=== PATIENT | male | born 1955 | race African-American/Black ===

== ENCOUNTER 2016-12-14 11:35 | Day surgery (SDC) | payer OTHER ==
[2016-12-13 15:16] VITALS: BMI 28.2
[~2016-12-14 11:35] MED LIST: ACETAMINOPHEN 325 MG TABLET (FP) PO PRN; ACETYLCHOLINE 1:100 INTRA-OCUL 20 MG/2 ML KIT IO ONE
[2016-12-14] MEDS ORDERED: CYCLOPENTOLATE HCL 1% OPHTH SOLN 2 ML BOTTLE ONE (11:45)
[2016-12-14] MEDS ORDERED: TROPICAMIDE 1% OPHTH SOLN 15 ML BOTTLE ONE (11:45)
[2016-12-14] MEDS ORDERED: FLURBIPROFEN 0.03% OPHTH SOLN 2.5 ML BOTTLE ONE (11:45)
[2016-12-14] MEDS ORDERED: CIPROFLOXACIN 0.3% EYE DROPS 5 ML BOTTLE ONE (11:45)
[2016-12-14] MEDS ORDERED: PHENYLEPHRINE 2.5% OPHTH SOLN 15 ML BOTTLE ONE (11:45)
[2016-12-14] MEDS: CIPROFLOXACIN HCL 0.3% OPHTH 2.5ML BOTTLE OP SCH ×3 (12:00→12:10)
[2016-12-14] MEDS: PHENYLEPHRINE 2.5% OPHTH SOLN 15 ML BOTTLE OP SCH ×3 (12:00→12:10)
[2016-12-14] MEDS: FLURBIPROFEN 0.03% OPHTH SOLN 2.5 ML BOTTLE OP SCH ×3 (12:00→12:10)
[2016-12-14] MEDS: TROPICAMIDE 1% OPHTH SOLN 15 ML BOTTLE OP SCH ×3 (12:00→12:10)
[2016-12-14] MEDS: CYCLOPENTOLATE HCL 1% OPHTH SOLN 2 ML BOTTLE OP SCH ×3 (12:00→12:10)
[2016-12-14] MEDS ORDERED: FLUORESCEIN NA 1 EA STRIP ONE ×2 (12:51→13:08)
[2016-12-14] MEDS ORDERED: POVIDONE-IODINE 5% OPHTHALMIC PREP 30 ML SOLUTION OS ONE (13:27)
[2016-12-14] MEDS ORDERED: BSS (NA/CA/MG/K) BALANCED SALT SOLUTION OPHTH SOLN 15 ML BOTTLE OS ONE (13:33)
[2016-12-14] MEDS ORDERED: EPINEPHrine/PF 1 MG/1 ML (1:1,000) AMPULE SQ ONE (13:33)
[2016-12-14] MEDS ORDERED: CHONDROITIN SU A/HYALUR SOD 1 KIT IO ONE (13:33)
[2016-12-14] MEDS ORDERED: LIDOCAINE HCL 1% PRESERVATIVE FREE - 30ML VIAL IO ONE (13:37)
[2016-12-14] MEDS ORDERED: FLUORESCEIN NA 1 EA STRIP OS ONE (13:41)
[2016-12-14] MEDS ORDERED: TRYPAN BLUE 0.5 ML DISP.SYRIN ONE (13:43)
[2016-12-14] MEDS ORDERED: TRYPAN BLUE 0.5 ML DISP.SYRIN IO ONE (13:46)
[2016-12-14] MEDS ORDERED: ACETYLCHOLINE 1:100 INTRA-OCUL 20 MG/2 ML KIT IO ONE (14:35)
[2016-12-14] MEDS ORDERED: oxyCODONE HCL 5 MG TABLET PO PRN (15:08)
[2016-12-14] MEDS ORDERED: PROMETHAZINE HCL 25 MG/1 ML VIAL IVPUSH PRN (15:08)
[2016-12-14] MEDS ORDERED: ONDANSETRON 4 MG/2 ML VIAL IVPUSH PRN (15:08)
[2016-12-14 15:58] VITALS: TEMP 98.8
[2016-12-14 16:42] VITALS: BP 141/73; PULSE 69
--- NOTE | 2016-12-15 14:13 | OP ---
DATE OF OPERATION: DATE OF DICTATION: 12/14/2016 PREOPERATIVE DIAGNOSIS: Ruptured globe. left eye ASSOCIATED DIAGNOSIS: Anteriorly dislocated intraocular lens. POSTOPERATIVE DIAGNOSIS: 1. Ruptured globe left eye 2. Anteriorly dislocated intraocular lens. PROCEDURE: Repair of ruptured globe with partial lensectomy and anterior vitrectomy left eye PROCEDURE: The patient was brought to the operating room and correctly identified along with the operative site. He was then placed under general anesthesia with endotracheal intubation without complication. He was then prepped and draped in the usual sterile fashion, including 5% Betadine solution in the conjunctival sac. However, care was taken to avoid any pressure on the eye. The eyelids were then taped and an eyelid speculum was placed into the left eye. The eye was inspected. Fluorescein testing was Hannah negative. The corneal graft junction was inspected with a cannula and a rupture of approximately 3 hours was noted supra-nasally. THere was some fibrinoid or vitreous like material noted plugging the wound. Viscoat was placed into the anterior chamber through the wound to deepen the anterior chamber and the eye was further inspected. A dense membrane or cataract was noted within the pupillary space. At this time, the decision was made to place 2 sutures superiorly in the intact corneal graft host junction, 270 degrees of the remainding graft host junction was then disrupted with corneal scleral scissors in order to elevate the donor cornea to address the material within the pupil via an open reese approach. The material was stained with Trypan blue, but this did not lead to any significant stain. An cystitome was used to attempt to initiate a capsulorrhexis. However, this material was noted to be very spongey and not anterior capsule. An anterior vitrector was used remove the tissue in the pupil. Some of the material was resected with elise scissors and sent for histopathologic evaluation. Note that there did not appear to be any retina within this material, no no vascularity was noted. THe pupil was cleared and cataractous material was noted very posteriorly. No attempt to remove it was made as it was very deep. An attempt was made to clear as much material behind the iris as possible. Additional Viscoat was placed in the posterior segment of the eye and then used in the angle to free any anterior synechiae, This was successful in all quadrants except temporal. The corneal button was then placed back in its position on a bed of viscoat and sutured with a total of 14 more 10-0 nylon sutures. Two paracenteses were created and the anterior vitrectomy was once again used, this time in a closed system and bimanual approach to clear any more material within the visual axis. Once again, a dense, white material was noted posteriorly and this was not able to be removed safely. At the end of the procedure, all wounds were tested and were watertight. being Hannah negative with fluorescein. Subconjunctival vancomycin was given. The eye was patched and shielded. The patient aroused from general anesthesia without complication and was discharged from the operating in a stable condition. GAB DAN M.D. [id number] MTDD
--- NOTE | 2016-12-16 11:34 | PATH ---
Surgical Pathology Report Patient Name: GARY DAUGHERTY [facility]. Rec. #: [id number] /Age/Gender: 1955 (Age: 61) / M Account: [id number] Location: [facility] Taken: 12/14/2016 Received: 12/15/2016 Reported: 12/16/2016 Physicians: Juan Soto M.D. Specimen(s) Received LEFT EYE CONTENTS Clinical History Ruptured globe Dislocated lens left eye Final Diagnosis LEFT EYE CONTENTS, EVACUATION: INFLAMED GRANULATION TISSUE WITH ACUTE AND CHRONIC INFLAMMATION, AND AREAS OF PIGMENT DEPOSITION MORPHOLOGICALLY CONSISTENT WITH HEMOSIDERIN. Electronically Signed Joaquin Santiago M.D. Gross Description Procedure in formalin, labeled "left eye contents," is a 0.3 cm in greatest dimension mccann-brown, irregular portion of soft tissue which is submitted in toto in one cassette. 12/15/201612/15/2016
== END 2016-12-14 16:44 | disposition home or self-care (01) ==
LOC: JASU-SURG 11:35
PROVIDERS: ATTEND Ophthalmology
PROC: 08Q9XZZ Repair Left Cornea, External Approach (ICD-10-PCS; 2016-12-14)
PROC: 08DK3ZZ Extraction of Left Lens, Percutaneous Approach (ICD-10-PCS; 2016-12-14)
PROC: 08B53ZZ Excision of Left Vitreous, Percutaneous Approach (ICD-10-PCS; 2016-12-14)
PROC: 08Q Eye, Repair (ICD-10-PCS; principal; 2016-12-14 13:00)
DX: S05.32XA Ocular laceration without prolapse or loss of intraocular tissue, left eye, initial encounter (principal); H27.122 Anterior dislocation of lens, left eye; X58.XXXA Exposure to other specified factors, initial encounter; Y93.9 Activity, unspecified; Y92.9 Unspecified place or not applicable; Y99.9 Unspecified external cause status
CPT/HCPCS: 88305-TC; 94760

== ENCOUNTER 2017-07-21 08:01 | Day surgery (SDC) | payer OTHER ==
[2017-07-18 14:20] VITALS: BMI 27.3
[2017-07-21 09:15] LABS: URINE MARIJUANA THC NEGATIVE ng/ml (CUTOFF=50)
--- NOTE | 2017-07-21 10:02 | HP ---
Satellite [facility] - Chief Complaint Chief Complaint: Right groin pain and swelling for over 6 months. History of Present Illness: C/O Pain and swelling in right groin for 6 months, increasing in size. Limitations to Obtaining History: No Limitations - Past Medical History Allergies/Adverse Reactions: Allergies Allergy/AdvReac Type Severity Reaction Status Date / Time No Known Drug Allergies Allergy Verified 07/21/17 09:04 Hepatobiliary: Yes: Hepatitis C Infectious Disease: Yes: HIV - Current Medications Current Medications: Home Medications Medication Instructions Recorded Efavirenz/Emtricitab/Tenofovir 1 tab PO DAILY #30 tab 02/06/17 [Atripla Tablet -] Multivitamin,Therapeutic [Oncovite] 1 each PO DAILY #30 tablet 02/06/17 Omeprazole 1 tab PO DAILY #30 tab 06/21/17 Satellite Physical Exam - Physical Examination Vital Signs: Vital Signs Period Temp Pulse Resp BP Sys/Corrales Pulse Ox Last 24 Hr 98.2 F 55 18 106/62 97 Heart: Regular rate & rhythm Abdomen: Other (Incarcerated right inguinal hernia with apin.) Extremities: No edema, No tenderness/swelling, Normal pulses, No clubbing, No cyanosis, Other Satellite Impression/Plan - Impression/Plan Impression: Incarcerated right inguinal hernia. Operative Procedure: Repair of incarcerated right inguinal hernia with mesh. Consent obtained. Date to be Performed: 07/21/17
[2017-07-21] MEDS ORDERED: BUPIVACAINE HCL/PF 0.5% (5MG/ML) 10 ML VIAL ONE (10:03)
[2017-07-21] MEDS ORDERED: ceFAZolin SODIUM 1 GM VIAL ONE (10:08)
[2017-07-21] MEDS ORDERED: LIDOCAINE HCL/PF 2% SDV 5ML VIAL ONE (10:08)
[2017-07-21] MEDS ORDERED: MIDAZOLAM HCL 2 MG/2 ML SINGLE DOSE VIAL ONE (10:08)
[2017-07-21] MEDS ORDERED: PROPOFOL 20 ML ONE ×2 (10:08)
[2017-07-21] MEDS ORDERED: ceFAZolin SODIUM 1 GM VIAL IVPB ONE (10:33)
[2017-07-21] MEDS ORDERED: BUPIVACAINE HCL/PF (5 MG/ML) 30 ML VIAL IJ ONE ×2 (10:45→11:45)
[2017-07-21] MEDS ORDERED: LACTATED RINGERS SOLUTION 1,000 ML IV SCH (12:15)
[2017-07-21] MEDS ORDERED: IBUPROFEN 800 MG/8 ML IJ IVPB PRN (12:15)
[2017-07-21] MEDS ORDERED: ONDANSETRON 4 MG/2 ML VIAL IVPUSH PRN (12:15)
[2017-07-21] MEDS ORDERED: oxyCODONE HCL 5 MG TABLET PO PRN (12:15)
[2017-07-21] MEDS ORDERED: ACETAMINOPHEN 1000 MG/100 ML VIAL (NON FORMULARY) IVPB PRN (12:16)
--- NOTE | 2017-07-21 12:23 | OP ---
Operative Note - Note: Operative Date: 07/21/17 Pre-Operative Diagnosis: Incarcerated right inguinal hernia. Operation: Repair of incarcerated right inguinal hernia with plug and mesh. Findings: Incarcerated indirect right inguinal hernia with a large sac. Post-Operative Diagnosis: Same as Pre-op Surgeon: Sol Powell Anesthesiologist/GEOGRAPHIC INFORMATION SYSTEMS MANAGER: Libra Walsh Anesthesia: General Specimens Removed: Hernial sac and lipoma of cord. Estimated Blood Loss (mls): 5 Operative Report Dictated: Yes
[2017-07-21] MEDS ORDERED: ACETAMINOPHEN INJECTION 100 ML IVPB ONE (12:35)
[2017-07-21] MEDS ORDERED: IBUPROFEN 800 MG/8 ML IJ IVPB ONE (12:43)
[2017-07-21 13:33] VITALS: TEMP 97.8
[2017-07-21 16:21] VITALS: BP 120/62; PULSE 69
--- NOTE | 2017-07-22 13:01 | OP ---
DATE OF OPERATION: 07/21/2017 PREOPERATIVE DIAGNOSES: Incarcerated right inguinal hernia, hepatitis C, human immunodeficiency virus. POSTOPERATIVE DIAGNOSES: Incarcerated right inguinal hernia, hepatitis C, human immunodeficiency virus. OPERATIVE PROCEDURE: Repair of incarcerated right inguinal hernia with plug and mesh. SURGEON: Alan Powell MD ANESTHESIA: General anesthesia. OPERATIVE DESCRIPTION: This 61-year-old man has swelling and pain in the right groin. The patient was found to have an incarcerated right inguinal hernia and was brought in for repair of the hernia. Consent was obtained. The risks, benefits and complications were discussed with the patient. The patient was brought to the operating room. He was given general anesthesia. The right groin was painted and draped. Timeout was called. An incision was made in the right groin along its skin crease, which was deepened inside the skin, subcutaneous tissue, Pablo fascia, and external oblique aponeurosis. The cord structures were then identified as well as the pubic tubercle and isolated around with a Windsor drain. The cord structures were very thick. The ilioinguinal nerve and iliohypogastric nerves were identified and preserved throughout the procedure. The cord structures were then exposed, the internal and external spermatic muscle and fascia. There was a thick hernia sac very close to the cord structures which were all the way towards the internal ring. This was suture ligated at the internal ring with 3-0 Vicryl sutures. The distal portion was thick and scarred. It was excised and sent to Pathology. There was also a lipoma of the cord which was suture ligated and divided. The peritoneum was then from the posterior surface of the abdominal wall, through the internal ring and pushed cephalad. A large plug was then inserted through the internal ring. This was anchored behind the internal oblique and transverse abdominis muscle with two 2- 0 Prolene sutures which were passed through the internal oblique and transverse abdominis muscle, brought out through the internal ring toward the outer leaf. The plug was reinserted through the internal ring and brought out through the transverse abdominis muscle and internal oblique muscle. Two short sutures were obtained, one above and lateral to the internal ring, another at the base of the internal ring. The plug was then inserted through the internal ring and was placed behind the transversalis muscle and fascia all around. The mesh was then inserted and was placed across the defect over the internal oblique and transverse abdominis muscle. This was anchored at the level of the pubic tubercle with 2-0 Prolene sutures. The inferior leaf of the mesh was then placed over the shelving edge of the inguinal ligament and anchored with the VersaTack tacking device. The superior leaf of the mesh was placed over the internal oblique muscle and incorporated into the 2-0 Prolene suture holding the plug behind the abdominal wall. This was then brought through the mesh and the knot was fastened. Thus, the internal oblique and transverse abdominis muscle and fascia were sandwiched between the plug and the mesh. Laterally, the two leaves of the mesh were brought around the cord structures, placed over each other, and anchored to the internal oblique muscle with interrupted 2-0 Prolene sutures. The defect was thus adequately covered. Hemostasis was satisfactory. The wound was irrigated. Cord structures were placed back in position. The external oblique aponeurosis was then approximated with continuous 3-0 Vicryl sutures, creating a new external ring. The Pablo fascia was then approximated by interrupted 3-0 Vicryl sutures. The subcutaneous fat was again approximated by interrupted 3-0 Vicryl sutures and skin approximated with continuous 4-0 Biosyn sutures in a running subcuticular fashion. Sponge count and instrument count were correct. Estimated blood loss was less than 5 mL. Dermabond was applied across the skin edges. Next, 0.5% Marcaine was injected into the wound, into the cord structures, as well as around the internal oblique, ilioinguinal nerve, and iliohypogastric nerves. The patient was extubated and returned to the recovery room in satisfactory and stable condition. Camila [id number] MTDD
--- NOTE | 2017-07-24 12:38 | PATH ---
Surgical Pathology Report Patient Name: GARY DAUGHERTY [facility]. Rec. #: [id number] /Age/Gender: 1955 (Age: 61) / M Account: [id number] Location: [facility] Taken: 07/21/2017 Received: 07/21/2017 Reported: 07/24/2017 Physicians: Alan Powell M.D. Specimen(s) Received A: LIPOMA OF RIGHT CORD B: HERNIA SAC Clinical History Right inguinal hernia Final Diagnosis A. SOFT TISSUE, RIGHT INGUINAL, EXCISION: BENIGN ADIPOSE TISSUE CONSISTENT WITH CORD LIPOMA B. SOFT TISSUE, RIGHT INGUINAL, EXCISION: FIBROMEMBRANOUS TISSUE CONSISTENT WITH HERNIA SAC, WITH AREAS OF CHRONIC INFLAMMATION. Electronically Signed Joaquin Santiago M.D. Gross Description A. Received in formalin labeled "lipoma of the cord," is a 3.0 x 1.3 x 0.7 cm irregular portion of yellow, lobulated adipose tissue with attached fibromembranous tissue. Videotape Sales Representative sections are submitted in one cassette. B. Received in formalin labeled "hernia sac," is a 4.3 x 2.0 x 0.6 cm portion of pink-mccann fibromembranous tissue, consistent with a hernia sac. Videotape Sales Representative sections are submitted in one cassette. 07/21/201707/21/2017
== END 2017-07-21 15:45 | disposition home or self-care (01) ==
LOC: JASU-SURG 08:01
PROVIDERS: ATTEND Specialist
PROC: 0YU50JZ Supplement Right Inguinal Region with Synthetic Substitute, Open Approach (ICD-10-PCS; principal; 2017-07-21 09:30)
DX: K40.30 Unilateral inguinal hernia, with obstruction, without gangrene, not specified as recurrent (principal); B15.9 Hepatitis A without hepatic coma; B20 Human immunodeficiency virus [HIV] disease
CPT/HCPCS: 80307; 88302-TC; 88304-TC; 94760

== ENCOUNTER → 2019-07-09 | Outpatient (CLI) | payer OTHER | LOC: YHH 08:52 ==

== ENCOUNTER 2020-06-11 05:06 | Day surgery (SDC) | payer OTHER ==
--- NOTE | 2020-06-11 12:05 | HP ---
Admitting History and Physical - Admission Chief Complaint: left lower extremity claudication less than one block. 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) Home Medications - Allergies Allergies/Adverse Reactions: Allergies Allergy/AdvReac Type Severity Reaction Status Date / Time No Known Drug Allergies Allergy Verified 06/10/20 08:11 - Home Medications Home Medications: Ambulatory Orders Loratadine [Claritin -] 1 tab PO DAILY #30 tablet 07/19/19 Hydrocortisone 1% Cream [Hytone 1% Cream -] 1 applic TP TID #1 tube 07/30/19 Blood Sugar Diagnostic [Glucose Test Strip] 1 each MC DAILY #50 strip 02/26/20 Blood-Glucose Meter [Blood Glucose Meter] 1 each MC DAILY #1 each 02/26/20 Lancets [Lancets Ultra Thin] 1 each MC DAILY #1 box 02/26/20 Bacitracin - [Bacitracin Topical Ointment -] 1 applic TP BID #1 tube 03/09/20 Bictegrav/Emtricit/Tenofov Ala [Biktarvy 50-200-25 mg Tablet] 1 tab PO DAILY #30 tablet 04/14/20 Clotrimazole [Clotrimazole AF] 28 gm TP BID #1 tube 04/14/20 Diphenhydramine [Benadryl Capsule -] 1 cap PO HS #30 capsule 04/14/20 Ibuprofen [Motrin -] 1 tab PO BID #30 tablet MDD 2 04/14/20 Metformin HCl [Glucophage] 1 tab PO DAILY #30 tablet 04/14/20 Multivitamin,Therapeutic [Oncovite] 1 each PO DAILY #30 tablet 04/14/20 Aspirin [Aspirin EC] 1 tab PO DAILY #30 tablet. 04/30/20 Review of Systems - Review of Systems Constitutional: reports: No Symptoms Eyes: reports: No Symptoms HENT: reports: No Symptoms Neck: reports: No Symptoms Cardiovascular: reports: No Symptoms Respiratory: reports: No Symptoms Gastrointestinal: reports: No Symptoms Genitourinary: reports: No Symptoms Breasts: reports: No Symptoms Reported Musculoskeletal: reports: No Symptoms Integumentary: reports: No Symptoms Neurological: reports: No Symptoms Endocrine: reports: No Symptoms Hematology/Lymphatic: reports: No Symptoms Psychiatric: reports: No Symptoms Physical Examination Vital Signs: Vital Signs Temperature 97.8 F 06/11/20 10:39 Pulse Rate 55 L 06/11/20 10:39 Respiratory Rate 12 06/11/20 10:39 Blood Pressure 130/71 06/11/20 10:39 O2 Sat by Pulse Oximetry (%) 98 06/11/20 10:39 Constitutional: Yes: Well Nourished, No Distress, Calm Eyes: Yes: WNL, Conjunctiva Clear, EOM Intact HENT: Yes: WNL, Atraumatic, Normocephalic Neck: Yes: WNL, Supple, Trachea Midline Cardiovascular: Yes: WNL, Regular Rate and Rhythm Respiratory: Yes: WNL, Regular, CTA Bilaterally Gastrointestinal: Yes: WNL, Normal Bowel Sounds Musculoskeletal: Yes: WNL Extremities: Yes: WNL Edema: No Peripheral Pulses WNL: No (dopplerable ) Peripheral Pulses: Left Femoral: 4+, Right Femoral: 4+ Integumentary: Yes: WNL Neurological: Yes: WNL, Alert, Oriented ...Motor Strength: WNL Psychiatric: Yes: WNL Problem List - Problems (1) Claudication of left lower extremity Assessment/Plan: For left lower extremity angiogram today. Slava Boston DO Problems reviewed: Yes Code(s): I73.9 - PERIPHERAL VASCULAR DISEASE, UNSPECIFIED
[2020-06-11] MEDS ORDERED: MIDAZOLAM HCL 2 MG/2 ML SINGLE DOSE VIAL ONE ×3 (12:14→13:21)
[2020-06-11] MEDS ORDERED: ceFAZolin SODIUM 1 GM VIAL IVPB ONE (12:40)
[2020-06-11] MEDS ORDERED: PROPOFOL 20 ML ONE (12:42)
[2020-06-11] MEDS ORDERED: ceFAZolin SODIUM 1 GM VIAL ONE (12:44)
[2020-06-11] MEDS ORDERED: LIDOCAINE HCL 1%, 10 MG/ML (20ML VIAL) PNB ONE ×2 (12:50)
[2020-06-11] MEDS ORDERED: ONDANSETRON 4 MG/2 ML VIAL IVPUSH PRN (14:02)
[2020-06-11] MEDS ORDERED: LACTATED RINGERS SOLUTION 1,000 ML IV SCH (14:15)
[2020-06-11] MEDS ORDERED: hydrALAZINE HCL 20 MG/ML VIAL IVPUSH ONE (14:45)
--- NOTE | 2020-06-11 14:56 | OP ---
Operative Note - Note: Operative Date: 06/11/20 Pre-Operative Diagnosis: Left lower extremity claudication Operation: Aortogram, LLE angiogram, SFA atherectomy, angioplasty with stent placement. Findings: Distal SFA occlusion Post-Operative Diagnosis: Same as Pre-op Surgeon: Slava Boston Anesthesia: MAC Estimated Blood Loss (mls): 50 Operative Report Dictated: Yes
[2020-06-11] MEDS ORDERED: CLOPIDOGREL BISULFATE 75 MG TABLET (FP) PO ONE (14:59)
[2020-06-11] MEDS ORDERED: GLYCOPYRROLATE 0.2 MG/1 ML VIAL ONE (15:07)
[2020-06-11] MEDS ORDERED: LABETALOL HCL 5 MG/1 ML (100MG/20 ML VIAL) ONE (15:41)
[2020-06-11] MEDS ORDERED: GLYCOPYRROLATE 1 MG/5 ML VIAL IVPB ONE (15:43)
[2020-06-11] MEDS ORDERED: LABETALOL HCL 5 MG/1 ML (100MG/20 ML VIAL) IVPUSH ONE ×2 (15:44→17:19)
[2020-06-11 16:59] VITALS: BP 143/93; PULSE 61; TEMP 97.7
--- NOTE | 2020-06-11 17:17 | OP ---
DATE OF OPERATION: 06/11/2020 PREOPERATIVE DIAGNOSIS: Left lower extremity claudication. POSTOPERATIVE DIAGNOSIS: Left lower extremity claudication. PROCEDURE: Aortogram, left lower extremity angiogram, superficial femoral artery atherectomy, superficial femoral artery angioplasty with stent placement. SURGEON: Slava Diaz DO ANESTHESIA: Fractional. BLOOD LOSS: 50 mL. INDICATIONS: The patient is a 64-year-old male that is a diabetic and a smoker that has left lower extremity claudication less than 1 block. Preoperative ultrasound showed that he has adductor SFA occlusion on ultrasound and on CTA. It was decided that he would need an angiogram. Patient was cleared by Medicine and Cardiology. Patient was found to be COVID negative. Patient again came in through ambulatory surgery. Patient was consented for the procedure, understanding all risks, benefits, and alternatives, and he was then taken to the operating room. DESCRIPTION OF PROCEDURE: Once in the operating room, he was placed on the operating table in supine manner, and the area of the right and left groins was prepped and draped in a sterile surgical manner. We then injected 10 mL of lidocaine 1% over the right common femoral artery. We then placed our Micropuncture wire, Micropuncture sheath, and we then placed a traditional 5-Mozambican sheath. We then placed a 0.035 floppy guidewire up into the aorta, followed by an Omniflush catheter under fluoroscopy. We then shot an angiogram by hand injection showing that the aorta disease. We then used our 0.035 floppy guidewire, went up and over to the left common femoral artery, with the Omniflush catheter following. We then shot an angiogram of the left lower extremity showing that the common femoral artery, profunda, and the proximal SFA were patent. The distal SFA in the adductor canal was occluded for about 8 cm and the reconstituted, and patient had essentially 1-vessel runoff into the foot, which was PT. At this point we placed 0.035 stiff guidewire into the SFA, removed the Omniflush catheter, placed a 6 x 45 crossover sheath. IV heparin, 5000 units, was administered to the patient. We then used our 0.035 stiff guidewire and got down to our occlusion with the Quick-Cross catheter, and we were able to selectively cross the occlusion and placed a wire in the below-knee popliteal artery. We then exchanged the wire for Viper Wire. We then went ahead and used [employer] Orbital Atherectomy Device and performed orbital atherectomy of the occluded area on low and medium. We then went ahead and shot an angiogram showing that there was some flow in the occluded segment now, but still needs to angioplasty. We then used a 5 x 8 Ultraverse balloon and performed angioplasty of the area. Completion angiogram now showed that the SFA was patent but still had some dissection. We then went ahead and placed a 6 x 8 LifeStent and balloon using a 5 x 8 balloon. Completion angiogram now showed that the SFA was patent, but there was still some further dissection, and another stent in the form of 6 x 4 was placed distal to that and proximal to that, so a total of 3 stents were placed and ballooned in place using our 5 x 8 balloon. Completion angiogram now showed that the SFA was patent. Good brisk flow with good blood flow down into the foot. At this point we brought our sheath up and over. StarClose device was successfully deployed in the right common femoral artery. Pressure held for 5 minutes. After there was no bleeding, area was wet and dried and Dermabond was placed. He tolerated the procedure with no complications. Patient transferred to PACU in stable condition. SLAVA DIAZ DO NP/[id number]
== END 2020-06-11 17:00 | disposition home or self-care (01) ==
LOC: JASU-SURG 05:06
PROVIDERS: ATTEND Surgery Vascular Surgery
PROC: 047L3DZ Dilation of Left Femoral Artery with Intraluminal Device, Percutaneous Approach (ICD-10-PCS; principal; 2020-06-11 11:30)
DX: I70.212 Atherosclerosis of native arteries of extremities with intermittent claudication, left leg (principal); I10 Essential (primary) hypertension; E11.9 Type 2 diabetes mellitus without complications; Z79.84 Long term (current) use of oral hypoglycemic drugs
CPT/HCPCS: 37227; C1877; 76000-TC-FY; 94760

== ENCOUNTER 2020-08-26 04:53 | Day surgery (SDC) | payer OTHER ==
[~2020-08-26 04:53] MED LIST changes: -ACETYLCHOLINE 1:100 INTRA-OCUL 20 MG/2 ML KIT IO ONE; +BSS (NA/CA/MG/K) BALANCED SALT SOLUTION OPHTH SOLN 15 ML BOTTLE OD ONE; +BUPIVACAINE HCL/PF 0.75% 10 ML VIAL RB ONE; +CHONDROITIN SU A/HYALUR SOD 1 KIT IO ONE; +EPINEPHrine/PF 1 MG/1 ML (1:1,000) AMPULE SQ ONE; +LIDOCAINE HCL 1% PRESERVATIVE FREE - 30ML VIAL IO ONE; +LIDOCAINE HCL/PF 2% SDV 5ML VIAL PNB ONE; +PHENYLEPHRINE 2.5% OPHTH SOLN 15 ML BOTTLE OP SCH; +POVIDONE-IODINE 5% OPHTHALMIC PREP 30 ML SOLUTION OD ONE; +TETRACAINE 0.5% OPHTH SOLN 2 ML BOTTLE OD ONE
[2020-08-26] MEDS ORDERED: BUPIVACAINE HCL/PF 0.75% 10 ML VIAL ONE (06:46)
[2020-08-26] MEDS ORDERED: LIDOCAINE HCL/PF 2% SDV 5ML VIAL ONE (06:46)
[2020-08-26] MEDS ORDERED: POVIDONE-IODINE 5% OPHTHALMIC PREP 30 ML SOLUTION ONE (06:46)
[2020-08-26] MEDS ORDERED: LIDOCAINE HCL/PF 1% SDV 5ML VIAL ONE (06:46)
[2020-08-26] MEDS ORDERED: EPINEPHrine/PF 1 MG/1 ML (1:1,000) AMPULE ONE (06:46)
[2020-08-26] MEDS ORDERED: TETRACAINE 0.5% OPHTH SOLN 2 ML BOTTLE ONE (06:46)
[2020-08-26] MEDS ORDERED: CHONDROITIN SU A/HYALUR SOD 1 KIT ONE (06:49)
[2020-08-26] MEDS ORDERED: KETOROLAC TROMETHAMINE 0.5% EYE DROP 1 DROP DROPS ONE (09:29)
[2020-08-26] MEDS ORDERED: TROPICAMIDE 1% OPHTH SOLN 15 ML BOTTLE ONE (09:29)
[2020-08-26] MEDS ORDERED: CYCLOPENTOLATE HCL 1% OPHTH SOLN 2 ML BOTTLE ONE (09:30)
[2020-08-26] MEDS ORDERED: OFLOXACIN 0.3% OPHTHALMIC SOLUTION 5 ML BOTTLE ONE (09:30)
[2020-08-26] MEDS: KETOROLAC TROMETHAMINE 0.5% EYE DROP 1 DROP DROPS OP SCH ×2 (09:38→09:46)
[2020-08-26] MEDS: CYCLOPENTOLATE HCL 1% OPHTH SOLN 2 ML BOTTLE OP SCH ×2 (09:38→09:46)
[2020-08-26] MEDS: TROPICAMIDE 1% OPHTH SOLN 15 ML BOTTLE OP SCH ×2 (09:39→09:47)
[2020-08-26] MEDS: OFLOXACIN 0.3% OPHTHALMIC SOLUTION 5 ML BOTTLE OP SCH ×2 (09:39→09:47)
[2020-08-26] MEDS ORDERED: MIDAZOLAM HCL 2 MG/2 ML SINGLE DOSE VIAL ONE (10:28)
[2020-08-26] MEDS ORDERED: TETRACAINE 0.5% OPHTH SOLN 2 ML BOTTLE OD ONE (10:29)
[2020-08-26] MEDS ORDERED: POVIDONE-IODINE 5% OPHTHALMIC PREP 30 ML SOLUTION OD ONE (10:30)
[2020-08-26] MEDS ORDERED: CHONDROITIN SU A/HYALUR SOD 1 KIT IO ONE (10:36)
[2020-08-26] MEDS ORDERED: TRYPAN BLUE 0.5 ML DISP.SYRIN IO ONE (10:36)
[2020-08-26] MEDS ORDERED: LIDOCAINE HCL 1% PRESERVATIVE FREE - 30ML VIAL IO ONE (10:36)
[2020-08-26] MEDS ORDERED: BSS (NA/CA/MG/K) BALANCED SALT SOLUTION OPHTH SOLN 15 ML BOTTLE OD ONE (10:36)
[2020-08-26] MEDS ORDERED: EPINEPHrine/PF 1 MG/1 ML (1:1,000) AMPULE SQ ONE (10:49)
--- NOTE | 2020-08-26 11:38 | OP ---
DATE OF ADMISSION: 08/26/2020 PREOPERATIVE DIAGNOSIS: Cataract right eye. ASSOCIATIVE DIAGNOSIS: Status post corneal transplant right eye. POSTOPERATIVE DIAGNOSIS: Status post corneal transplant right eye. OPERATION: Phacoemulsification of right cataract with capsular staining with Trypan blue and intraocular lens implantation, lens used [id number], 7.0 Diopter power, serial number [id number]. SURGEON: Juan Soto M.D. ANESTHESIA: Topical MAC. COMPLICATIONS: None. PROCEDURE: The patient was brought to the operating room and correctly identified as well as the operative site and correct intraocular lens shepard. He was then prepped and draped in the usual sterile fashion including 5% Betadine solution in the conjunctival sac and an eyelid drape. An eyelid speculum was then placed into the right eye. The cataract was inspected and a poor red reflex was noted due to the slightly hazy cornea. A paracentesis port was created and 0.5 mL of preservative-free lidocaine 1% was given intracamerally. An air bubble was then placed in the eye and the anterior capsule was then stained with Trypan blue. The Trypan blue was irrigated from the eye with 0.5 mL of the same preservative-free lidocaine 1%. Viscoelastic was injected to inflate the anterior chamber. A temporal clear corneal wound was created. Care was made not to tunnel into the corneal graft-host junction. A continuous circular capsulorrhexis was successfully performed. The nucleus was hydro-dissected with BSS and removed with phacoemulsification. The remaining cortical material was irrigated and aspirated from the eye. Viscoelastic was injected to inflate the capsular bag. The lens was then injected into the bag. The Viscoelastic was irrigated and aspirated from the eye. All wounds were tested and found to be watertight. However, a single 10-0 nylon suture was still placed in the temporal clear corneal wound as the patient is monocular with this eye being his only functional eye and the patient lives alone. After the nylon suture was placed, all wounds were again tested and found to be watertight. No further suture was placed. Topical Vancomycin was given. The eye shielded. The patient was discharged from the operating room in stable condition. Camila MCDANIEL/[id number] [facility]
[2020-08-26 11:39] VITALS: PULSE 56; TEMP 97.4
[2020-08-26 12:12] VITALS: BP 140/66
== END 2020-08-26 13:09 | disposition home or self-care (01) ==
LOC: JASU-SURG 04:53
PROVIDERS: ATTEND Ophthalmology
PROC: 08RJ3JZ Replacement of Right Lens with Synthetic Substitute, Percutaneous Approach (ICD-10-PCS; principal; 2020-08-26 11:00)
DX: N26.9 Renal sclerosis, unspecified (principal); Z94.7 Corneal transplant status; Z21 Asymptomatic human immunodeficiency virus [HIV] infection status
CPT/HCPCS: G0463-25

== ENCOUNTER 2020-12-08 10:27 | Emergency (ER) | payer OTHER ==
[2020-12-08 10:47] VITALS: BP 131/62; PULSE 61; TEMP 98; BMI 27.3
== END 2020-12-08 12:37 | disposition home or self-care (01) ==
LOC: JERFT 10:27
DX: L02.415 Cutaneous abscess of right lower limb (principal); Z21 Asymptomatic human immunodeficiency virus [HIV] infection status
CPT/HCPCS: 87070; 87186; 87205; 99283-25